=== PATIENT | male | born 1940 | race Caucasian/White ===

== ENCOUNTER 2016-12-25 08:48 | Outpatient (CLI) | payer MEDICARE, BC ==
[~2016-12-25] VITALS: Ht 193 cm; Wt 143.2 kg
--- NOTE | ~2016-12-25 | HEMODYNAMI ---
PATIENT:TIN ALVARADO MEDICAL RECORD: [id number] : 38 LOCATION:[facility] ADMISSION DATE: 12/25/16 Generatedon:12/25/201612:11 Patient name: TIN ALVARADO Patient #: [id number] SSN: : Date of study: 12/25/2016 Page: Of Hemodynamic Procedure Report Patient Data Patient Demographics Procedure consent was obtained First Name: TIN Gender: Male Last Name: CHRISTIANO : 1940 Middle Initial: RAY Age: 76 year(s) Patient #: [id number] Race: Unknown Additional ID: [id number] Contact details [address]: [address] [place] [address] State: [place] City: [place] Zip code: [address] Admission Admission Data Admission Date: 12/25/2016 Admission Time: 8:48 Procedure Procedure Types Cath Procedure Peripheral Cath Diagnostic Procedure Kyphoplasty Kyphoplasty Lumbar Procedure Description Procedure Date Procedure Date: 12/25/2016 Procedure Start Time: 11:20 Procedure Staff Name Function Letty Olivo RT Scrub Annelise Archuleta RN Nurse Pacheco Rae RT Monitor Davie Andrade MD Performing Physician Procedure Data Cath Procedure Fluoroscopy Diagnostic fluoroscopy Total fluoroscopy Time: 8 time: 8 min min Diagnostic fluoroscopy Total fluoroscopy dose: 603 dose: 603 mGy mGy Hemodynamics Rest Heart Rate: 58 (bpm) Snapshots Pre Cath Intra NCS Post Cath Vital Signs Time Heart Resp SPO2 NIBP (mmHg) Rhythm Pain Sedation Rate (ipm) (%) Status Level (bpm) 10:58:36 56 6 99 156/86(112) NSR 0 (11) 10(A) , No pain 11:03:10 55 18 98 160/79(126) NSR 0 (11) 10(A) , No pain 11:07:36 56 16 98 157/92(106) NSR 0 (11) 10(A) , No pain 11:12:01 54 4 99 158/88(103) NSR 0 (11) 10(A) , No pain 11:17:00 55 14 96 Measuring NSR 0 (11) 10(A) , No pain 11:17:28 57 11 97 152/90(132) NSR 0 (11) 10(A) , No pain 11:21:57 56 12 98 158/81(114) NSR 0 (11) 10(A) , No pain 11:26:25 59 12 98 155/85(127) NSR 0 (11) 10(A) , No pain 11:30:43 58 12 98 153/89(126) NSR 0 (11) 10(A) , No pain 11:35:09 59 15 98 158/89(127) NSR 0 (11) 10(A) , No pain 11:39:36 64 12 97 144/90(121) NSR 0 (11) 10(A) , No pain 11:43:58 63 16 98 160/93(143) NSR 0 (11) 10(A) , No pain 11:48:26 71 15 97 177/101(141) NSR 0 (11) 10(A) , No pain 11:52:59 76 12 91 171/94(133) NSR 0 (11) 10(A) , No pain 11:57:31 83 13 90 168/89(128) NSR 0 (11) 10(A) , No pain 12:02:03 83 16 90 182/119(150) NSR 0 (11) 10(A) , No pain 12:06:03 68 11 100 No Cuff NSR 0 (11) 10(A) , No pain 12:10:03 No Cuff NSR 0 (11) 10(A) , No pain Procedure Log Time Note 10:47:49 Pacheco Rae RT (R) (CV) sent for patient. Start room use. 10:47:57 Time tracking: Regular hours 10:48:02 Plan of Care:Hemodynamics will remain stable., Cardiac rhythm will remain stable., Comfort level will be maintained., Respiratory function will remain adequate., Patient/ family verbilizes understanding of procedure., Procedure tolerated without complication., Recovers from procedure without complications.. 10:48:08 Patient received from Outpatients to IR Alert and oriented. Tansferred to table in Prone position. 10:48:26 Correct patient and procedure confirmed by team. 10:48:28 Signed procedure consent form obtained from patient. 10:48:30 ECG and BP/O2 sat monitors applied to patient. 10:48:31 Full Disclosure recording started 10:48:33 - 10:48:43 H&P Date Dictated: 12/25/2016 H&P Addendum completed by physician on day of procedure. (MUST COMPLETE FOR ALL OUTPATIENTS). 10:48:46 Pre-procedure instructions explained to patient. 10:48:46 Pre-op teaching completed and patient verbalized understanding. 10:48:48 Family in waiting room. 10:48:50 Patient NPO since Midnight. 10:49:25 SEE ANESTHESIA NOTE FOR PRE PROCEDURE TIVA 10:49:27 - 10:49:34 Use device set IR Diagnostic 10:49:35 Bag Decanter opened to sterile field. 10:49:36 Sterile Angiographic Pack opened to sterile field. 10:51:18 Zero performed for pressure channel P1 10:57:13 Vital chart was started 10:57:15 Baseline sample Acquired. 10:57:17 Rhythm: sinus rhythm 10:57:22 Alarms reviewed by R. N. 10:57:23 Sharps counted by scrub and verified by R.N. 10:57:31 Lumbar area was prepped with chlora-prep and draped in sterile fashion 11:18:38 Physician arrived 11:18:38 --------ALL STOP TIME OUT------ 11:18:41 Final Timeout: patient, procedure, and site verified with staff and physician. All members of the team are in agreement. 11:18:47 Lumbar site verified by team. 11:18:51 Physical assessment completed. ASA score P 3 - A patient with severe systemic disease as per DAVIE ANDRADE MD. 11:18:57 Sedation plan: TIVA Propofol 11:20:01 Procedure started. 11:20:17 Local anesthetic to Lumbar area with Lidocaine 1% L-1 by DAVIE ANDRADE MD.INITIAL ACCESS ONLY 11:21:49 KYPHON DOMINIC EXPRESS 15/2 CDS SYSTEM opened to sterile field. 11:58:38 Procedure ended.(Physican Out) 11:59:09 Fluoroscopy time 08.00 minutes. 11:59:17 Fluoroscopy dose: 603 mGy 11:59:17 Flurop Dose total: 603 11:59:18 Sharps counted by scrub and verified by R.N. 11:59:20 Insertion/operative site no bleeding no hematoma. 11:59:49 Post Lumbar area:unchanged 11:59:56 Post-procedure physical assessment completed. ASA score P 3 - A patient with severe systemic disease as per Davie Andrade MD. 11:59:58 Post procedure rhythm: unchanged. 12:00:00 Procedure and supply charges have been captured, reviewed, submitted an d are correct. 12:00:53 SEE ANESTHESIA NOTE FOR POST PROCDURE TIVA 12:10:33 Report given to Outpatients. 12:10:38 Patient transfered to Outpatients with Bed. 12:11:42 Vital chart was stopped Device Usage Item Name Manufacture Quantity Catalog Hospital Part Current [facility] l Lot# / Number Charge Number Stock Stock Serial# Code Bag Decanter Microtek 1 [id number] [employer] Sterile Cardinal 1 [id number] 5 Angiographic Health Pack KYPHON DOMINIC Medtronic 1 [id number] 5 EXPRESS 15/2 CDS SYSTEM Signature Audit Formoso Stage Time Signature Unsigned Intra-Procedure 12/25/2016 Pacheco 12:11:40 PM Kyra RT (R) (CV) Signatures Monitor : Pacheco Signature : Kyra RT Date : Time : [id number] [place] [address]
[2016-12-25] MEDS ORDERED: COUMADIN10 MG PO (09:53)
[2016-12-25 09:54] LABS: APPEARANCE CLEAR (CLEAR); BILIRUBIN NEGATIVE (NEGATIVE); COLOR YELLOW (YELLOW); GLUCOSE NEGATIVE (NEGATIVE); KETONE NEGATIVE (NEGATIVE); LEUKOCYTE ESTERASE NEGATIVE (NEGATIVE); NITRITE NEGATIVE (NEGATIVE); PROTEIN NEGATIVE (NEGATIVE); SPECIFIC GRAVITY 1.015 (1.005-1.020); UROBILINOGEN NORMAL (NORMAL)
[2016-12-25] MEDS ORDERED: COUMADIN2 MG PO (09:55)
[2016-12-25] MEDS ORDERED: HYDROCODONE-APA1 TAB PO (09:56)
[2016-12-25] MEDS ORDERED: ROBAXIN-750750 MG PO (09:56)
[2016-12-25] MEDS ORDERED: HCTZ25 MG PO (09:57)
[2016-12-25] MEDS ORDERED: LISINOPRIL10 MG PO (09:57)
[2016-12-25 10:02] LABS: APTT 29.3 SECONDS (22.8-39.4); INR 1.1 (0.85-1.17); PROTIME 14.1 SECONDS (11.6-15.0)
[2016-12-25 10:03] LABS: CALC OSMOLALITY 278 mosm/kg (275-300); CALCIUM 9.5 mg/dL (8.5-10.1); CARBON DIOXIDE 31.2 mmol/L (21.0-32.0); CHLORIDE - SERUM 105 mmol/L (98-107); GLUCOSE 105 mg/dL (74-106); POTASSIUM - SERUM 4.4 mmol/L (3.5-5.1); SODIUM 139 mmol/L (136-145); UREA NITROGEN 15 mg/dL (7-18); eGFR NON AFRICAN AMERICAN 77 mL/min (90-120)
[2016-12-25 10:10] VITALS: BP 150/79; Ht 193 cm; Wt 143.2 kg
[2016-12-25 10:18] LABS: BASOPHILS 0.3 % (0-2); EOSINOPHILS 4.8 % (0-7); HEMATOCRIT 44.6 % (42.0-54.0); HEMOGLOBIN 14.4 g/dL (13.5-17.5); IMMATURE GRANULOCYTES 1.4 % (0-5); LYMPHOCYTES 14.9 % (15-50); MCH 30.6 pg (26.0-34.0); MCHC 32.3 g/dL (31.0-37.0); MCV 94.9 fL (80.0-100.0); MEAN PLATELET VOLUME 11.1 fL (7.4-10.4); MONOCYTES 8.7 % (2-11); NEUTROPHILS 69.9 % (40-80); PLATELET COUNT 233 10x3/uL (130-400); RDW 13.9 % (11.5-14.5); WBC 6.5 10x3/uL (4.8-10.8)
--- NOTE | 2016-12-25 14:40 | NUR ---
1440--IV DC'D, PT DRESSING AT THIS TIME. LENIN ESPINOZA RN WITH [facility] AT BEDSIDE. ERICA WILEY
--- NOTE | 2016-12-25 14:46 | NUR ---
1225--ALL VITAL SIGNS CHARTED ON POST PROCEDURE VITAL SIGN SHEET ON CHART. ERICA WILEY
--- NOTE | 2016-12-25 14:58 | NUR ---
1455--DISCHARGE INSTRUCTIONS GIVEN, PT VERBALIZES UNDERSTANDING. PT OFF UNIT VIA BARBIE. ERICA WILEY
== END 2016-12-25 14:55 | disposition home or self-care (01) ==
LOC: D.OPS 08:48 → D.RAD 11:00 → D.OPS 11:00
PROVIDERS: General Practice
DX: M48.56XA Collapsed vertebra, not elsewhere classified, lumbar region, initial encounter for fracture (principal)